=== PATIENT | male | born 1930 | race Caucasian/White ===

== ENCOUNTER → 2017-02-07 | Outpatient (CLI) | payer OTHER ==
[~2017-02-07] VITALS: Ht 182.9 cm; Wt 96.6 kg
[~2017-02-07] MED LIST: AMBIEN 10 MG TA10 MG PO; ASPIRIN EC81 M1 PO; ASPIRIN325 PO; B-100 COMPLEX1 EAC1 PO; CENTRUM SILVER1 EAC1 PO; CLONAZEPAM 0.50.5 M1 PO; COZAAR 50 MG TA50 M1 PO; DIAZEPAM 10 MG10 M1 PO; DIOVAN 80 MG TA80 M1 PO; DIOVAN HCT 80-1 EACH PO; DIOVAN PO; DIOVAN40 MG PO; DURAGESIC1 EAC2 TD; ENDOCET 10-3251 EACH OR; EYE VITAMINS; FENTANYL PA12 MCG/H1 TP; FISH OIL 1,0001 EAC5 PO; FISHOIL PO; FLEXERIL PO; FLONASE 0.05%50 MCG NASAL; FLONASE 0.05%50 MCG NS; GABAPENTIN100 MG PO; GENTLE LAXATIVE5 M1 PO; HYDROCODON-ACE1 EACH PO; HYDROCODONE-AP1 EAC6 PO; IBUPROFEN 200200 M1 PO; LINZESS290 MCG PO; LIPITOR40 MG PO; LUNESTA2 MG PO; LUNESTA3 MG PO; LUTEIN6 MG PO; MELOXICAM7.5 MG PO; METHYLPHENIDATE5 M1 PO; MOBIC7.5 MG PO; MOM PO; MOVANTIK25 MG PO; NEURONTIN 300300 M1 OR; NEURONTIN 300300 M1 PO; NEURONTIN 300M300 M2 PO; NEURONTIN 400400 M1 PO; NITROSTAT0.3 MG PO; NORFLEX100 MG PO; OCCUVITE PO; OXYCODONE-ACET1 EACH PO; OXYCODONE-APAP1 EAC4 OR; OXYCODONE-APAP1 EAC4 PO; OXYCONTIN PO; OXYCONTIN10 M1 PO; PERCOCET; PERCOCET 5-3251 EACH PO; PRAVACHOL40 MG PO; PRILOSEC40 MG PO; PROBIOTIC1 EACH PO; SUDOGEST30 MG PO; TRAMADOL 50 MG50 MG PO; TRILEPTAL150 MG PO; TYLENOL PM; ULTRAM 50MG TAB50 MG OR; VENLAFAXINE HCL50 MG PO; VERAPAMIL ER180 MG PO; VITAMIN E400 UNIT PO; XALATAN2.5 ML; XANAX 0.25 MG0.25 MG PO; XANAX 0.5 MG0.5 M1 PO
--- NOTE | ~2017-02-07 | HPC ---
[facility] [address] [place] [address] PAIN MANAGEMENT CONSULTATION Name: JOSE ARMANDO GODOY Room #: [facility] [id number] Admission: 02/07/17 Attend Phys: Elder Swartz DO Discharge: Date of : 32 Report #: [id number] THIS REPORT FOR: //name// CC: Sunny Swartz The patient is a pleasant 86-year-old gentleman long known to pain clinic, being treated for symptomatic lumbar radiculopathy status post decompressive laminectomy, neuropathic pain, chronic pain syndrome requiring complex medication management. Last visit was 12/19/2016, we continued the patient on Duragesic 12 mcg q.48-72 hours. A q. 72 hours was working reasonably well, but he was having trouble with the patches, some would get balled up in his T-shirt, occasionally he would have problems trying to apply a patch and it would get stuck to itself rendering it useless. I elected to increase his prescription to a q. 48 h. patch to enable continued coverage with a few extra patches should he have issues maintaining a patch for 72 hours. We continued Percocet 5/325 one half tablet up to 4 times a day. He returns to pain clinic today noting that while medications are doing well, he has developed acute exacerbation of lumbar pain without antecedent trauma and overuse. He uses a spinal cord stimulator during more rigorous activities, which for the patient would include going to the grocery store and walking. He notes that these turns his spinal cord stimulator up at that time, though he states it "wears him out." He does use a cane in his left hand. Past few weeks again pain is increased without specific antecedent trauma and overuse. He does relate some to weather changes, but notes pain has gotten to the point at a 7 or 8 on a 0-10 visual analog scale, worse at night, low back, buttock with sciatic component down his legs. Chronic stinging sensation in his feet. He incidentally notes he has had some issues with hypersomnolence sleeping 10-12 hours at night. I suggest that he discontinue clonazepam, but he notes that if he does not use clonazepam he cannot sleep at fall. He has had troubles with chronic insomnia all of his life. Currently, he is using clonazepam 0.5 mg at bedtime. I suggest he try cutting this in half, if it still affords some soporific effect without leaving him to over-sedated in the morning and causing effective hypersomnolence. PHYSICAL EXAMINATION: Shows an 86-year-old gentleman, BMI is 28.9 kilograms per meter squared. Blood pressure is 140/80, pulse 65, respirations are 14. Alert and oriented to person, place and time, judged to be a reasonable historian. Lower extremity strength is generally symmetric. Rises from chair using armrest, has pain radiating to the buttock, perirectal area and posterior thighs, fairly classic L5 radicular pattern, his history is neurogenic claudication. ASSESSMENT: 1. Symptomatic lumbar radiculopathy status post decompressive laminectomy, [address] [address] PAIN MANAGEMENT CONSULTATION Name: JOSE ARMANDO GODOY Room #: REG [facility] Nava#: [id number] Admission: 02/07/17 Attend Phys: Elder Swartz DO Discharge: Date of : 32 Report #: [id number] chronic pain syndrome, neuropathic pain requiring complex medication management, component of insomnia. RECOMMENDATIONS: 1. Continue Duragesic 12 mcg q. 48-72 hours. 2. Continue Percocet 5/325 half tablet q.i.d. 60 tablets for 30 days. Continue clonazepam, I wrote for 0.5 mg at bedtime, but suggest the patient try using half tablet. 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 Taken the liberty of writing for 2 months of current medication. Follow up at that time. 2. Acute exacerbation of lumbar r radiculopathy with neurogenic claudication symptoms affecting the L5 nerve root. RECOMMENDATION: Proceed with epidural injection under fluoroscopy at L5-S1 today. PROCEDURE NOTE: Lumbar epidural injection under fluoroscopy. PROCEDURE NOTE: After both written and informed consent to include risk of spinal cord damage, increased pain, weakness and dural puncture, the patient was taken to the fluoroscopy suite, placed in the prone position. After sterile prep and drape, a skin wheal with lidocaine was raised. A 22-gauge epidural Tuohy needle was inserted in the midline at L5-S1 with good loss to resistance. Negative aspiration for cerebrospinal fluid or blood was noted. Then 1 mL of Omnipaque under biplanar fluoroscopy showed good spread within the epidural space. This was followed with 80 mg of triamcinolone plus 1 mL of 1.5% preservative-free Xylocaine, 0.5 mL Xylocaine was then injected to flush the needle; it was removed. The patient was monitored for an appropriate period of time and discharged in good and stable condition. By: [id number] Elder Swartz DO /nt
[2017-02-07 13:20] VITALS: BP 140/80
== END | disposition home or self-care (01) ==
LOC: PAIN 06:24
DX: M54.16 Radiculopathy, lumbar region (principal); G89.4 Chronic pain syndrome; Z98.890 Other specified postprocedural states; G47.00 Insomnia, unspecified; Z87.891 Personal history of nicotine dependence

== ENCOUNTER → 2017-05-08 | Outpatient (CLI) | payer OTHER ==
[~2017-05-08] VITALS: Ht 182.9 cm; Wt 93.9 kg
--- NOTE | ~2017-05-08 | HPC ---
[facility] [address] [place] [address] PAIN MANAGEMENT CONSULTATION Name: JAYNEJOSE ARMANDO Des Room #: REG [facility].#: [id number] Admission: 05/08/17 Attend Phys: Elder Swartz DO Discharge: Date of : 32 Report #: [id number] THIS REPORT FOR: //name// CC: Sunny Swartz The patient is an 87-year-old gentleman long known to the pain clinic, being treated for lumbar radiculopathy status post decompressive laminectomy, neuropathic pain, chronic pain syndrome requiring complex medication management. Last seen in the pain clinic on 02/07/2017. The patient was continued on Duragesic 12 mcg, typically q. 72 hours, but I wrote for q. 48 hours as he was having trouble with patches, occasionally he would put a patch on and get it "balled up" when taking his T-shirt off. Occasionally, when trying to manipulate the small patches, at 87 years of age, he would get in stuck and the patch would then be useless. At any rate, I wrote for Duragesic 12 mcg q. 48 hours. To his credit, he is actually made these patches lasts for nearly 3 months. He has only had a few patches this last time that he did lose. Continues to use Percocet 5/325 one half tablet 3-4 times a day. Uses clonazepam at bedtime for his chronic insomnia. He presents to the pain clinic today, we had a prolonged visit from 14:05-14:30, greater than 50% of the 25+ minute visit was spent counseling the patient. He describes chronic insomnia issues, but notes that when he does fall asleep, he sleeps about 10 hours. More concerningly he has had a little bit of weight loss, he had weighed typically in the 96-97 kilogram range for a number of years ago though most recently down to about 93.89 kilograms. He describes some malaise and loss of appetite. He also again more concerningly describing neurogenic claudication type symptoms. He notes standing, walking for any period of time exacerbates low back pain with his legs feeling fairly heavy. He rarely uses a cane. 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 PHYSICAL EXAMINATION: Shows 87-year-old gentleman, BMI is 28.1 kilograms per meter squared. He was seen in the company of his who is supportive. He is alert and oriented to person, place, and time, judged to be a reasonable historian. Vital signs are stable. Rises from chair using armrest. Modestly antalgic gait, diffuse tenderness across the low back. Lower extremity strength is generally symmetric. Balance is adequate. There is no nystagmus or lateral gaze deviation. We reviewed the fact that opiate medications are being used to provide analgesia adequate to support activities of daily living, not attempting to achieve a specific pain score on the 0-10 Visual Analog Scale. The current opiate medications are providing sufficient analgesia to allow the patient to participate in activities of daily living. The patient is not exhibiting any [address] [address] PAIN MANAGEMENT CONSULTATION Name: JOSE ARMANDO GODOY Room #: REG CL Brandy#: [id number] Admission: 05/08/17 Attend Phys: Elder Swartz DO Discharge: Date of : 32 Report #: [id number] aberrant behavior suggestive of drug diversion. The patient is not having any adverse reactions to medications. The patient is not suffering from daytime somnolence or mental acuity changes. The patient is managing opiate-induced constipation with appropriate pxjk-esw-daldwqm agents and dietary considerations. The patient was counseled on concern for caution with operating a motor vehicle while using opiate medications. A physical exam was performed and the patient's functional status was evaluated. All patients with back pain were advised against the bed rest greater than 4 days and were advised to return to normal activities. Pain score assessment was noted and the treatment plan was reviewed with the patient. All current medications, both prescribed and OTC were reviewed and reconciled on the electronic medical record. Tobacco screening was accomplished and smoking cessation was advised when indicated. BMI was noted and diet/exercise modification was recommended for all patients following outside normal parameters. I reviewed with the patient today their responsibilities to safeguard prescription medications, reviewed their responsibility to utilize medications only as prescribed by the physician. They are to seek and receive pain medications only from 1 physician group ( [facility]). They are to use 1 pharmacy and keep the clinic informed if they change pharmacies. Their responsibilities include making followup visits in a timely fashion and to avoid abrupt discontinuation of medication usage. Their responsibilities further include bringing their medications (bottles from the pharmacy with residual pills) to the visit for possible confirmation of pill counts and the patient understands it is their responsibility to submit to random drug screens to ensure both that the medications prescribed are present, and that no other controlled substances are present. All prescriptions provided today were generated electronically. ASSESSMENT: Lumbar radiculopathy status post decompressive laminectomy, neuropathic pain, chronic axial back pain requiring complex medication management in a gentleman uses a spinal cord stimulator periodically. Doing well on current medication. No problems with daytime somnolence, mental acuity changes, or constipation. RECOMMENDATION: Continue baseline medication unchanged, Duragesic 12 mcg q. 48 hours to be used more like q. 72. Continue Percocet 5/325, but we will increase from 60 to 75 tablets, encouraging the patient to take a half tablet q. 4-6 hours up to 6 a day with a caveat that we are increasing the opiate analgesics specifically to enable increase in function. Hopefully, this will help with the neurogenic claudication type pain symptoms. If this does not afford good relief in 2 months, we will consider lumbar epidural injection under fluoroscopy. Lastly, we will get a urine drug screen at next visit (actually a buccal drug [address] [address] PAIN MANAGEMENT CONSULTATION Name: JOSE ARMANDO GODOY Room #: [facility]#: [id number] Admission: 05/08/17 Attend Phys: Elder Swartz DO Discharge: Date of : 32 Report #: [id number] swab). Again, no aberrant behavior suggestive for drug diversion, simply complying with opiate consent to treat contract. Reviewing the patient's chart after he left the clinic I noticed that there are no drug screens available. I have very little index suspicion for opiate diversion. <ELECTRONICALLY SIGNED> By: Elder Swartz DO 05/09/17 1225 [id number] Elder Swartz DO /nt
[2017-05-08 13:58] VITALS: BP 137/76
== END ==
LOC: PAIN 07:04
DX: M54.16 Radiculopathy, lumbar region (principal)

== ENCOUNTER → 2017-06-19 | Outpatient (CLI) | payer OTHER ==
[~2017-06-19] VITALS: Ht 182.9 cm; Wt 94.3 kg
--- NOTE | ~2017-06-19 | HPC ---
[facility] [address] [place] [place] [address] PAIN MANAGEMENT CONSULTATION Name: JAYNEJOSE ARMANDO Des Room #: REG [facility]#: [id number] Admission: 06/19/17 Attend Phys: Elder Swartz DO Discharge: Date of : 32 Report #: [id number] THIS REPORT FOR: //name// CC: Sunny Swartz The patient is an 87-year-old gentleman long known to pain clinic, typically treated for lumbar radiculopathy status post decompressive laminectomy, chronic pain syndrome requiring high risk complex medication management. Last visit 05/08/2017, we kept the patient on Duragesic 12 mcg q.72 hours, Percocet 5/325 increased from 60-75 tablets. He typically takes a half a tablet 4-5 times a day. I had prior encouraged the patient to wean clonazepam. He was complaining of ongoing poor sleep and sedation in the daytime. He returns to pain clinic today, I had a prolonged visit with the patient and his , he was seen from [id number]. Greater than 50% of this time was spent counseling with the patient. He is complaining of sleep disruption though on deeper probing of this complaint, he notes that he goes to bed at about 10:00 p.m., he takes half of the Percocet. He watches TV for half hour in bed and then tries to get asleep. If he is still sleeping an hour, he will take another half of Percocet. States sometimes he does not fall asleep until mid night to 4 a.m. However, once he is asleep, he states he sleeps very soundly. He does get up every 2 hours to urinate but he feels quite rested, if he gets sleep, i.e., 4:00 a.m. he will sleep still noon. If he gets to sleep earlier, mid night he will sleep till 9:00 a.m. He is complaining that since I took him off the clonazepam, he cannot fall asleep as early as he did. When I queried as to why he cannot get to sleep, he states "I can control the pain with the pain medicine." He states he has pain in the belly and radiates in the tailbone and rectum. He has some pain in the posterior thigh, lateral calf to top of his toes. He has a spinal cord stimulator that he uses intermittently. Again, percocet allows him to "get on top of the pain" and it is clear that pain is not keeping him awake. When further queried, he states "I think about things that happened in my life" and that keeps me up. He states he does not regret activities or rue missed opportunities. He simply states that memories keep him somewhat amused and awake. Again, I spent a prolonged visit with the patient today discussing in depth "sleep hygiene." Discussed the fact that he needs to go to bed at a specific time. I have a routine pattern prior to sleep during which time he does not use fairly stimulating visual devices such as reading from laptop, notebook or watching television. Talked about going to bed at a specific time in a quiet room. If he does not fall asleep within 30 minutes, he should get up and out of [facility] [address] [place] [address] PAIN MANAGEMENT CONSULTATION Name: JOSE ARMANDO GODOY Room #: REG [facility] Nava#: [id number] Admission: 06/19/17 Attend Phys: Elder Swartz DO Discharge: Date of : 32 Report #: [id number] the bed and go to a different room and read. He should get up at a specified time regardless of when he falls asleep, i.e., 9 a.m. and perhaps as importantly as anything else, he should eschew daytime naps. He states he takes a nap nearly daily, in fact took a nap today. He did seem to understand initially how sleeping during the day could impact nighttime sleep. I suggested that he start using better "sleep hygiene." RECOMMENDATION: 1. Going to bed at a regular time. 2. Getting up at regular time. 3. Avoiding daytime napping. 4. Avoiding stimulating laptop "screens" including watching television. 5. Getting out of bed if he does not fall asleep within a reasonable time, all of these activities should get the patient on back to better sleep awake cycle. I told them at his age soporific agents are relatively contraindicated as they can have a prolonged half life and cause daytime somnolence and mental acuity changes along with cognitive dysfunction. Suggested that if he cannot start sleeping better using simple sleep hygiene, I would refer him to a sleep specialist. His sees Dr. Shorty Castro. He may benefit from consult as well. Discharged in good and stable condition after prolonged visit, spent counseling the patient. No medication changes were made. Patient was seen for >25 minutes today, 50% of that time spent counseling the patient. <ELECTRONICALLY SIGNED> By: Elder Swartz DO 06/20/17 0657 [id number] Elder Swartz DO /nt
[2017-06-19 13:44] VITALS: BP 102/62
== END | disposition home or self-care (01) ==
LOC: PAIN 07:10
DX: M54.16 Radiculopathy, lumbar region (principal); Z98.890 Other specified postprocedural states; G89.4 Chronic pain syndrome; Z87.891 Personal history of nicotine dependence

== ENCOUNTER → 2017-09-04 | Outpatient (CLI) | payer OTHER ==
[~2017-09-04] VITALS: Ht 182.9 cm; Wt 93.3 kg
[~2017-09-04] MED LIST changes: +Fentanyl Patch 12 Mc TRANSDERM; +SUDOGEST COLD PO
--- NOTE | ~2017-09-04 | HPC ---
[facility] [address] [place] [address] PAIN MANAGEMENT CONSULTATION Name: JAYNEJOSE ARMANDO Des Room #: REG [facility].#: [id number] Admission: 09/04/17 Attend Phys: Elder Swartz DO Discharge: Date of : 32 Report #: [id number] THIS REPORT FOR: //name// CC: Efren Swartz PAIN CLINIC NOTE SUBJECTIVE: The patient is an 87-year-old gentleman typically treated for lumbar radiculopathy status post decompressive laminectomy, chronic axial back pain requiring high risk complex medication management. He states he struggles with insomnia, though as we will see he actually is getting adequate sleep. Last seen in the pain clinic 07/17/2017. Continue on Percocet 5 mg half tablet typically 5 times a day (2-1/2-3 tablets a day). Baseline Duragesic 12 mcg q. 48-72 hours. He returns to pain clinic today. He notes chronic axial back pain radiating to both legs and feet. He rates the pain as 6-7 on a VAS. He describes an aching, stabbing, burning, stinging sensation that is chronic. States he can walk about 20 minutes before pain becomes problematic. He does use a spinal cord stimulator when he is more active, going to the grocery store. The patient states he struggles with constipation. He takes both Linzess and Movantik along with docusate. I suggest he had MiraLax daily and continue with activity. It appears that he is fairly sedentary when he is not going to the grocery store and/or caring for his . We talked about sleep, typically the patient goes to bed about 10:30, but watches TV. Ultimately falls asleep around 1:00 a.m. and sleeps until about 10:00. He gets a good 9 hours. He states that he also falls asleep typically after dinner perhaps at 7:00 to 9:00 p.m. Point out that with 11 hours of sleep, he clearly is getting sufficient rest, suggested that if he wants to try and shift his sleep cycle back to 10:00 or 11:00 p.m. bedtime and getting up at 8:00 or 9:00 that he simply set an alarm for 8:00 a.m. and try to eschew napping after dinner. I did point out; however, that at 87 years of age, he has really no responsibility sling to time, he does not need to go to work, etc. If he is happy with his sleep cycle, it is certainly reasonable. PHYSICAL EXAMINATION: Otherwise is unchanged, pleasant 87-year-old gentleman, BMI is 27.9 kilograms per meter squared. Vital signs stable. Rises fairly easily from the chair. Gait is actually tandem and lower extremity strength is preserved. Some diffuse axial back pain, no discrete trigger points noted. ASSESSMENT: Chronic lumbar radiculopathy status post decompressive laminectomy requiring high risk complex medication management, stable on Duragesic 12 mcg q. 48-72 hours (uses the patches q. 72 hours, but occasionally will lose the patch [address] [address] PAIN MANAGEMENT CONSULTATION Name: JOSE ARMANDO GODOY Room #: REG [facility] Nava#: [id number] Admission: 09/04/17 Attend Phys: Elder Swartz DO Discharge: Date of : 32 Report #: [id number] here or there when he changes his T-shirt). I typically give him 1 prescription for q. 48 hours, i.e., 15 patches and 1 prescription for 72 hours, i.e., 10 patches. This is quantity sufficient for 2+ months. Percocet 5/325 one half to one tablet 5 times a day, limit 75 tablets for 30 days. We did obtain a buccal random drug swab today. No aberrant behaviors suggestive of drug diversion, simply complying with opiate consent to treat contract. We reviewed the fact that opiate medications are being used to provide analgesia adequate to support activities of daily living, not attempting to achieve a specific pain score on the 0-10 Visual Analog Scale. The current opiate medications are providing sufficient analgesia to allow the patient to participate in activities of daily living. The patient is not exhibiting any aberrant behavior suggestive of drug diversion. The patient is not having any adverse reactions to medications. The patient is not suffering from daytime somnolence or mental acuity changes. The patient is managing opiate-induced constipation with appropriate yqqq-npc-zbqqpzr agents and dietary considerations. The patient was counseled on concern for caution with operating a motor vehicle while using opiate medications. A physical exam was performed and the patient's functional status was evaluated. All patients with back pain were advised against the bed rest greater than 4 days and were advised to return to normal activities. Pain score assessment was noted and the treatment plan was reviewed with the patient. All current medications, both prescribed and OTC were reviewed and reconciled on the electronic medical record. Tobacco screening was accomplished and smoking cessation was advised when indicated. BMI was noted and diet/exercise modification was recommended for all patients following outside normal parameters. I reviewed with the patient today their responsibilities to safeguard prescription medications, reviewed their responsibility to utilize medications only as prescribed by the physician. They are to seek and receive pain medications only from 1 physician group ( [facility]). They are to use 1 pharmacy and keep the clinic informed if they change pharmacies. Their responsibilities include making followup visits in a timely fashion and to avoid abrupt discontinuation of medication usage. Their responsibilities further include bringing their medications (bottles from the pharmacy with residual pills) to the visit for possible confirmation of pill counts and the patient understands it is their responsibility to submit to random drug screens to ensure both that the medications prescribed are present, and that no other controlled substances are present. All prescriptions provided today were generated electronically. By: [id number] Elder Swartz DO /nt
[2017-09-04 15:06] VITALS: BP 131/68
== END ==
LOC: PAIN 07:19
DX: M54.16 Radiculopathy, lumbar region (principal); Z79.899 Other long term (current) drug therapy

== ENCOUNTER → 2017-11-06 | Outpatient (CLI) | payer OTHER ==
[~2017-11-06] VITALS: Ht 182.9 cm; Wt 93.0 kg
--- NOTE | ~2017-11-06 | HPC ---
[facility] [address] [place] [address] PAIN MANAGEMENT CONSULTATION Name: JAYNEJOSE ARMANDO Des Room #: REG [facility].#: [id number] Admission: 11/06/17 Attend Phys: Elder Swartz DO Discharge: Date of : 32 Report #: [id number] THIS REPORT FOR: //name// CC: Efren Swartz The patient is an 87-year-old gentleman long treated for lumbar radiculopathy status post decompressive laminectomy, axial back pain and chronic insomnia, requiring complex medication management. Last seen in the pain clinic on 09/04/2017. Buccal swab at that time was positive for prescribed medications and no others. Returns to pain clinic today in the company of his daughter who is supportive. We had a prolonged visit today reviewing therapeutic issues and concerns. He was seen for approximately 30 minutes today, greater than 50% of time spent counseling the patient. Tragically, his of 60+ years was admitted to the hospital essentially with some cardiac congestive failure. She was also found to have stage 4 lung and liver cancer. The patient is planning on bringing her home for hospice care. 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 I noticed today that his balance is getting a little more wide-based and ataxic. He does use a cane to assist with balance. He has not fallen in the last 3 months. He does not really participate in much activity for exercise. He is complaining of ongoing insomnia. We had a prolonged discussion at last visit. It turns out that he actually sleeps 10 or 11 hours a day in various snippets. 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 At home, we do not want to "render him unconscious" and then have him try and get up in the middle of the night to attend to his for fear of him hurting himself or her. After a prolonged time, the patient came to the understanding that probably a sleep aid was not in his better interest. He does note his pain is a 6 on a VAS. His pain impact score was reviewed, he scores 51/70 and pain impact score a year ago was 46/70. He is getting a little more impactful issues with chronic pain. Otherwise, he does have a history of arthritis affecting knees and hips. BMI is 27.8 kilograms per meter squared. Vital signs are stable as noted in the EMR. Subjective pain score is 6 on a VAS at present. Again, he has not fallen, but does use a cane for balance. His opiate contract was initially signed on 10/14/2013. We reviewed this again today. [place] [address] PAIN MANAGEMENT CONSULTATION Name: JAYNEJOSE ARMANDO Nunes Room #: REG [facility] Brandy#: [id number] Admission: 11/06/17 Attend Phys: Elder Swartz DO Discharge: Date of : 32 Report #: [id number] Physical exam does note a wide-based, ataxic gait. Diffuse axial tenderness, though radicular symptoms are fairly nominal. Has some right L4 radicular pain. His spinal cord stimulator continues to afford some relief with pain. We reviewed the fact that opiate medications are being used to provide analgesia adequate to support activities of daily living, not attempting to achieve a specific pain score on the 0-10 Visual Analog Scale. The current opiate medications are providing sufficient analgesia to allow the patient to participate in activities of daily living. The patient is not exhibiting any aberrant behavior suggestive of drug diversion. The patient is not having any adverse reactions to medications. The patient is not suffering from daytime somnolence or mental acuity changes. The patient is managing opiate-induced constipation with appropriate jncf-mxq-iwicecy agents and dietary considerations. The patient was counseled on concern for caution with operating a motor vehicle while using opiate medications. A physical exam was performed and the patient's functional status was evaluated. All patients with back pain were advised against the bed rest greater than 4 days and were advised to return to normal activities. Pain score assessment was noted and the treatment plan was reviewed with the patient. All current medications, both prescribed and OTC were reviewed and reconciled on the electronic medical record. Tobacco screening was accomplished and smoking cessation was advised when indicated. BMI was noted and diet/exercise modification was recommended for all patients following outside normal parameters. I reviewed with the patient today their responsibilities to safeguard prescription medications, reviewed their responsibility to utilize medications only as prescribed by the physician. They are to seek and receive pain medications only from 1 physician group ( [facility]). They are to use 1 pharmacy and keep the clinic informed if they change pharmacies. Their responsibilities include making followup visits in a timely fashion and to avoid abrupt discontinuation of medication usage. Their responsibilities further include bringing their medications (bottles from the pharmacy with residual pills) to the visit for possible confirmation of pill counts and the patient understands it is their responsibility to submit to random drug screens to ensure both that the medications prescribed are present, and that no other controlled substances are present. All prescriptions provided today were generated electronically. ASSESSMENT: Lumbar radiculopathy status post decompressive laminectomy, axial back pain and chronic pain syndrome, requiring complex medication management. Comorbidity includes chronic insomnia. 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 [facility] [address] [place] [address] PAIN MANAGEMENT CONSULTATION Name: JOSE ARMANDO GODOY Room #: REG [facility] Brandy#: [id number] Admission: 11/06/17 Attend Phys: Elder Swartz DO Discharge: Date of : 32 Report #: [id number] RECOMMENDATIONS: We will continue baseline medications unchanged, Duragesic 12 mcg q. 72 hours and Percocet 5/325 half to one tablet 3 times a day with 1 at bedtime, limit 75 tablets for 30 days. I have taken the liberty of writing for 2 months of current medication. Follow up at that time, earlier if needed. <ELECTRONICALLY SIGNED> By: Elder Swartz DO 11/10/17 0747 [id number] 15 Elder Swartz DO /nt
[2017-11-06 14:07] VITALS: BP 135/69
== END ==
LOC: PAIN 07:09
DX: M54.16 Radiculopathy, lumbar region (principal); M96.1 Postlaminectomy syndrome, not elsewhere classified; G89.29 Other chronic pain; Z79.899 Other long term (current) drug therapy

== ENCOUNTER → 2018-01-01 | Outpatient (CLI) | payer OTHER ==
[~2018-01-01] VITALS: Ht 185.4 cm; Wt 93.9 kg
--- NOTE | ~2018-01-01 | HPC ---
[facility] [place] [address] PAIN MANAGEMENT CONSULTATION Name: JAYNEJOSE ARMANDO Des Room #: REG [facility].#: [id number] Admission: 01/01/18 Attend Phys: Elder Swartz DO Discharge: Date of : 32 Report #: [id number] THIS REPORT FOR: //name// CC: Efren Swartz DATE OF SERVICE: 01/01/2018 The patient is an 87-year-old gentleman, long treated for lumbar radiculopathy status post decompressive laminectomy, axial back pain requiring complex medication management. Comorbidity includes some chronic insomnia. Last seen in pain clinic 11/06/2017. Continued on Duragesic 12 mcg q.72 hours, continued to wean Percocet 5/325, he takes half tablet 5-6 times a day (2-1/2 to 3 tablets a day). Last random drug screen 09/04/2017 was positive for prescribed medications. He returns to pain clinic today. Tragically, since we last saw him, he brought his home on hospice and she ultimately succumbed to her pulmonary carcinoma on 11/21/2017. They were for 62 years. To the patient's credit, he has continued to work with Physical Therapy. He tells me he has been going to physical therapy 3-4 times a week and is doing the exercises daily. He has been doing stretching exercises, range of motion and some balance exercises as well. He rates his pain a 5 on a VAS. He has been able to wean his Percocet 5/325 one-half tablet down to 3-4 times a day (1-/2 to 2 tablets a day). I talked about further weaning this agent and weaning off of Duragesic and then subsequently weaning off of gabapentin. We will reserve the latter agent for weaning last. PHYSICAL EXAMINATION: Does show a pleasant 87-year-old gentleman, BMI is 27.3 kg per meter squared, blood pressure 133/73, pulse 63, respirations 16. Subjective pain score is 5 on a VAS presently. He uses a cane for balance, has a moderately ataxic gait. Right leg has a little external rotation and slight weakness compared to left. Diffuse tenderness across the low back. No discrete trigger points are noted. Range of motion is limited. He has not fallen in the last 3 months. Again, does use a cane for balance. We had reviewed his opiate consent to treat contract 10/21/2016. He scores in the low risk category for opiate abuse. Functional impact score, however, is about 46/70. We reviewed the fact that opiate medications are being used to provide analgesia adequate to support activities of daily living, not attempting to achieve a specific pain score on the 0-10 Visual Analog Scale. The current opiate [address] [address] PAIN MANAGEMENT CONSULTATION Name: JOSE ARMANDO GODOY Room #: REG [facility] Brandy#: [id number] Admission: 01/01/18 Attend Phys: Elder Swartz DO Discharge: Date of : 32 Report #: [id number] medications are providing sufficient analgesia to allow the patient to participate in activities of daily living. The patient is not exhibiting any aberrant behavior suggestive of drug diversion. The patient is not having any adverse reactions to medications. The patient is not suffering from daytime somnolence or mental acuity changes. The patient is managing opiate-induced constipation with appropriate pjek-tfj-vbspmcv agents and dietary considerations. The patient was counseled on concern for caution with operating a motor vehicle while using opiate medications. A physical exam was performed and the patient's functional status was evaluated. All patients with back pain were advised against the bed rest greater than 4 days and were advised to return to normal activities. Pain score assessment was noted and the treatment plan was reviewed with the patient. All current medications, both prescribed and OTC were reviewed and reconciled on the electronic medical record. Tobacco screening was accomplished and smoking cessation was advised when indicated. BMI was noted and diet/exercise modification was recommended for all patients following outside normal parameters. I reviewed with the patient today their responsibilities to safeguard prescription medications, reviewed their responsibility to utilize medications only as prescribed by the physician. They are to seek and receive pain medications only from 1 physician group ( [facility]). They are to use 1 pharmacy and keep the clinic informed if they change pharmacies. Their responsibilities include making followup visits in a timely fashion and to avoid abrupt discontinuation of medication usage. Their responsibilities further include bringing their medications (bottles from the pharmacy with residual pills) to the visit for possible confirmation of pill counts and the patient understands it is their responsibility to submit to random drug screens to ensure both that the medications prescribed are present, and that no other controlled substances are present. All prescriptions provided today were generated electronically. ASSESSMENT: Lumbar radiculopathy status post decompressive laminectomy, axial back pain requiring complex medication management. RECOMMENDATION: Continue Duragesic 12 mcg q.72 hours for another 2 months. Continue weaning Percocet, I have written for a 5/325 tablet, limit 60 tablets, one-half tablet up to 4 times a day, encouraged continued weaning usage. We will see him back in 2 months for reevaluation. At that time, we will plan on discontinuing Duragesic altogether, continuing gabapentin unchanged at 400 mg 1 tab in the morning, 1 at noon, 1 at dinner and 1 at bedtime (4 a day). He has a 90-day prescription for this and does not require renewal. We will likely increase the Percocet at that time back to a 5/325 tablet, but enabling up to 6 "half-tablets" per day, i.e. 90 tablets for 30 days with discontinuation of the Duragesic. Again, strongly encouraged aggressive physical therapy, which the [facility] [address] [address] PAIN MANAGEMENT CONSULTATION Name: JOSE ARMANDO GODOY [id number] Admission: 01/01/18 Attend Phys: Elder Swartz DO Discharge: Date of : 32 Report #: [id number] patient is pursuing. I will be happy to reorder physical therapy if the therapist sends a request as needed. Discharged in good and stable condition. Follow up in 2 months for reevaluation. <ELECTRONICALLY SIGNED> By: Elder Swartz DO 01/03/18 0954 [id number] 26 Elder Swartz DO /nt
[2018-01-01 12:56] VITALS: BP 133/73
== END ==
LOC: PAIN 06:30
DX: M54.16 Radiculopathy, lumbar region (principal); M96.1 Postlaminectomy syndrome, not elsewhere classified; Z79.899 Other long term (current) drug therapy

== ENCOUNTER → 2018-03-26 | Outpatient (CLI) | payer OTHER ==
[~2018-03-26] VITALS: Ht 185.4 cm; Wt 92.4 kg
--- NOTE | ~2018-03-26 | HPC ---
[facility] [address] [place] [address] PAIN MANAGEMENT CONSULTATION Name: JAYNEJOSE ARMANDO Des Room #: REG [facility].#: [id number] Admission: 03/26/18 Attend Phys: Elder Swartz DO Discharge: Date of : 32 Report #: [id number] THIS REPORT FOR: //name// CC: Efren Swartz DATE OF SERVICE: 03/26/2018 The patient is an 88-year-old gentleman long known to the pain clinic, treated for lumbar radiculopathy status post decompressive laminectomy, axial back pain requiring complex medication management. Last seen in the pain clinic 01/01/2018. Continued on Duragesic 12 mcg q.72h., Percocet 5 mg one half tablet prn . He uses a half tablet up to 4 times a day (10 mg oxycodone max "prn dose" ). Has done reasonably well with this. Returns to pain clinic today. We had a prolonged visit from 13:27-13:55; greater than 50% of this 25+ minute visit was spent counseling the patient. The patient's of 62 years passed 11/21/2017. She was at home on hospice for pulmonary carcinoma. To the patient's credit, he has continued to work with physical therapy 3-4 times a week. Exercising. He has lost a little bit of weight, but he has been able to manage his complicated grieving. He still struggles with insomnia. Notes his pain is a 5-7 on a VAS. Again, pain is primarily back and legs with some paresthesia in his feet. Chronic burning sensation. Pain exacerbated with walking, seems to be worse in the evening. Has a spinal cord stimulator that does help. We have tried other interventional therapies in the past, last epidural injection was in 01/2017 with really minimal efficacy. He has done well with current medications. No changes in mental acuity changes or constipation. The patient insightfully noted that when he had played some fairly competitive bridge for 3 hours, he came home and was very tired and slept for a number of hours. He recognizes that while he does get adequate sleep throughout the 24-hour cycle, he typically will nap at various times in the day and then have trouble sleeping. He often goes to bed at 10:30 at night, but will read for several hours before falling asleep. If he is a little more physically or mentally active, he will have a little better sleep-wake cycle. We reviewed the fact that opiate medications are being used to provide analgesia adequate to support activities of daily living, not attempting to achieve a specific pain score on the 0-10 Visual Analog Scale. The current opiate [address] [address] PAIN MANAGEMENT CONSULTATION Name: JOSE ARMANDO GODOY Room #: REG [facility] Nava#: [id number] Admission: 03/26/18 Attend Phys: Elder Swartz DO Discharge: Date of : 32 Report #: [id number] medications are providing sufficient analgesia to allow the patient to participate in activities of daily living. The patient is not exhibiting any aberrant behavior suggestive of drug diversion. The patient is not having any adverse reactions to medications. The patient is not suffering from daytime somnolence or mental acuity changes. The patient is managing opiate-induced constipation with appropriate rxfw-gmo-hmwugqy agents and dietary considerations. The patient was counseled on concern for caution with operating a motor vehicle while using opiate medications. A physical exam was performed and the patient's functional status was evaluated. All patients with back pain were advised against the bed rest greater than 4 days and were advised to return to normal activities. Pain score assessment was noted and the treatment plan was reviewed with the patient. All current medications, both prescribed and OTC were reviewed and reconciled on the electronic medical record. Tobacco screening was accomplished and smoking cessation was advised when indicated. BMI was noted and diet/exercise modification was recommended for all patients following outside normal parameters. I reviewed with the patient today their responsibilities to safeguard prescription medications, reviewed their responsibility to utilize medications only as prescribed by the physician. They are to seek and receive pain medications only from 1 physician group ( [facility]). They are to use 1 pharmacy and keep the clinic informed if they change pharmacies. Their responsibilities include making followup visits in a timely fashion and to avoid abrupt discontinuation of medication usage. Their responsibilities further include bringing their medications (bottles from the pharmacy with residual pills) to the visit for possible confirmation of pill counts and the patient understands it is their responsibility to submit to random drug screens to ensure both that the medications prescribed are present, and that no other controlled substances are present. All prescriptions provided today were generated electronically. PHYSICAL EXAMINATION: Shows pleasant 88-year-old gentleman, BMI is 26.9 kilograms per meter squared. Blood pressure is 115/78, pulse 64, respirations 16, room air oxygen saturation 98%. Rises from chair using armrest. Does have a modestly ataxic gait, uses a cane for balance. Right leg has a little external rotation, slight weakness compared to the left side. Diffuse tenderness across the low back, no discrete trigger points are noted. Lumbar range of motion is a little limited. His most recent opiate consent to treat contract was signed 10/21/2016. He has exhibited no aberrant behavior suggestive for drug diversion. Last random drug screen 09/09/2017 was positive for prescribed medications. [address] [place] [address] PAIN MANAGEMENT CONSULTATION Name: JOSE ARMANDO GODOY Room #: REG [facility]#: [id number] Admission: 03/26/18 Attend Phys: Elder Swartz DO Discharge: Date of : 32 Report #: [id number] The patient expressed interest in relocating his pain care to [facility]. 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 I told him that I will be leaving the practice area moving out of state. We will be happy to send the patient's medical records to [facility]. Again, he has been remarkably stable on moderate dose opiate, Duragesic 12 mcg q.72h., Percocet 5/325 typically 2 a day (3-4 one-half tablets daily). I have taken the liberty of writing for 2 months of current medication. I have renewed his venlafaxine 50 mg at bedtime, 90 tablets with 2 refills and gabapentin 400 mg, he typically takes 4 a day, 90-day prescription with 360 tablets with 2 refills, this was generated today as well. Discharged in good and stable condition. We will send his medical records to [facility] if they are willing to take new patients. If, however, he cannot find a willing pain provider, we will be happy to continue his care at [facility]. <ELECTRONICALLY SIGNED> By: Elder Swartz DO 03/27/18 0829 [id number] Elder Swartz DO /clarissa
[2018-03-26 13:12] VITALS: BP 115/78
== END ==
LOC: PAIN 08:38
DX: M54.16 Radiculopathy, lumbar region (principal); Z79.899 Other long term (current) drug therapy